=== PATIENT | male | born 1985 | race Caucasian/White ===

== ENCOUNTER 2022-12-15 13:51 | Outpatient (CLI) | payer BC, SELFPAY ==
[2022-12-15 15:10] LABS: Liquefaction Semen Complete in 30 min. (<30 minutes); Semen Viscosity Not Increased (Not Increa.); Volume Semen 0.5 mL (1.5-5.0)
[2022-12-15 15:11] LABS: Semen Color Opaque (Grey-opaque); Semen Immotility 80 %; Semen Non-Progressive Motility 0 %; Semen Progressive Motility 20 % (>32); pH Semen 8.5 (7.2-8.0)
[2022-12-15 15:12] LABS: Semen Total Motility 20 (>40% (PM+NP))
[2022-12-15 15:15] LABS: Semen Morphology Result to Follow; Sperm Count < 1 Mil/mL (60-150 million/mL)
[2022-12-21 22:19] LABS: Fructose, Semen 163 mg/dL (150-600)
== END 2022-12-15 13:52 | disposition home or self-care (01) ==
LOC: CHSLAB 13:57
PROVIDERS: PCP Family Medicine; Visit Provider Nurse Practitioner Family
DX: N46.9 Male infertility, unspecified (principal)
CPT/HCPCS: 82757; 88160; 89320